=== PATIENT | male | born 1980 | race Caucasian/White ===

== ENCOUNTER 2016-07-02 04:50 | Emergency (ER) | payer OTHER ==
--- NOTE | 2016-07-02 06:16 | DIAGNOSTIC IMAGING REPORT ---
PROCEDURE: CT HEAD WITHOUT CONTRAST INDICATION: HEADACHE TECHNIQUE: Noncontrast axial images with sagittal and coronal reformations. COMPARISON: None. FINDINGS: Sulci and ventricular system are normal. Cavum septum pellucidum (normal variant). No evidence of acute intracranial process. Visualized mastoids and sinuses are clear. No significant interval change. IMPRESSION: 1. Negative non-enhanced head CT. 2. Findings discussed with Dr. Sims at 06:14 a.m.[facility] Standard Time
--- NOTE | 2016-07-02 06:16 | DIAGNOSTIC IMAGING REPORT ---
PROCEDURE: CT HEAD WITHOUT CONTRAST INDICATION: HEADACHE TECHNIQUE: Noncontrast axial images with sagittal and coronal reformations. COMPARISON: None. FINDINGS: Sulci and ventricular system are normal. Cavum septum pellucidum (normal variant). No evidence of acute intracranial process. Visualized mastoids and sinuses are clear. No significant interval change. IMPRESSION: 1. Negative non-enhanced head CT. 2. Findings discussed with Dr. Sims at 06:14 a.m.[facility] Standard Time
--- NOTE | 2016-07-02 08:58 | ED ORDER SUMMARY ---
..... Patient: RICARDO HUDSON OrderSheet [facility] VisitID: [id number] [place] [address] 35y, M Registration Date/Time: 07/02/2016 ORDER SHEET Weight: 154.2 kg (stated) Allergies: Codeine GENERAL ORDERS: CT Head wo Cont Urgent (05:07/02/2016 Sergio RIDDLE) (Ack 5:28 AMcQuoid ER Tech1) (5:52 Whit) Cardiac Panel Stat (05:07/02/2016 Sergio RIDDLE) (Ack 5:28 AMcQuoid ER Tech1) (5:57 SBalde R.N.) UA-Culture if indicated Urgent (05:07/02/2016 Sergio RIDDLE) (Ack 5:28 AMcQuoid ER Tech1) (5:58 SBalde R.N.) Urine Drug Screen Urgent (05:07/02/2016 Sergio RIDDLE) (Ack 5:28 AMcQuoid ER Tech1) (5:58 SBalde R.N.) MEDICATION ORDERS: - (verapamil 120 mg po) (05:31 07/02/2016 Sergio RIDDLE) (Ack 5:37 SBalde R.N.) (5:58 SBalde R.N.) Ativan PO 1 mg (HIGH ALERT MEDICATION, NOW) (05:58 07/02/2016 SBalde R.N. verbal order read back to Sergio RIDDLE) (6:00 SBalde R.N.) GI Cocktail WHITE PO 50 mL (NOW) (07:23 07/02/2016 Sergio RIDDLE) (Ack 7:43 Gertrude R.N.) (7:53 Gertrude R.N.) IV FLUIDS: Ativan IV 0.5 mg (NOW) (05:07/02/2016 Sergio RIDDLE) (Ack 5:37 SBalde R.N.) (Cancelled: Change in patient condition5:58 SBalde R.N.) IV Saline Lock (05:07/02/2016 Sergio RIDDLE) (Cancelled: Change in patient condition5:58 SBalde R.N.) ORDER SHEET NOTES: [Electronically signed by Milagro Mckeon R.N. (09:07/02/2016)] [Electronically signed by Rocky Sims MD (:14 07/04/2016)] [Electronically locked/signed by Milagro Mckeon R.N. (:07/02/2016)]
--- NOTE | 2016-07-02 08:58 | ED NURSING NOTES ---
Clinical Report - Nurses [facility] [address] [place] [address] 07/02/2016 4:50 [id number] Triage time 04:54 Jul 02 2016. Acuity: LEVEL 2. Alert. No acute distress. GENESIS COMA SCORE: Genesis Coma Scale: 15- eyes open spontaneously (4); best verbal response- oriented x 4 (5); best motor response- obeys commands (6). --05:00 Aura Henderson R.N. 04:54 07/02/16. BP: 158/85. HR: 76. RR: 18. O2 saturation: 100%. Temp: 98.4 F. Pain level now 10/10. --05:00 Aura Henderson R.N. Chief Complaint: BLOOD PRESSURE CHECK and HEADACHE. --09:13 Milagro Mckeon R.N. Weight: 154.2 kg stated. Height/Length: 72 inches Per Patient. BMI: 46.1. --04:54 Aura Henderson R.N. Medications Verapamil HCl Oral (not taking, RX ran out, not refilled). --04:57 Aura Henderson R.N. Suboxone Sublingual 16 mg. --04:57 Aura Henderson R.N. Nystatin Mouth/Throat. --04:58 Aura Henderson R.N. Tylenol Oral, as needed. --04:58 Aura Henderson R.N. Medication/allergy information source: the patient. --05:00 Aura Henderson R.N. Allergies Codeine. (chest pain) --04:57 Aura Henderson R.N. History Arrived by private vehicle. Historian: patient. Accompanied by family. ( High Blood Pressure at the clinic yesterday, c/o Headache, 10 all these symptoms started yesterday. Started Suboxone May 25, off Heroin.). This started yesterday. 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 PAST MEDICAL HX: Has not received seasonal influenza immunization. SOCIAL HX: Heavy tobacco smoker (cigarette)- less than 1 pack per day. 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 No alcohol use. NUTRITIONAL RISK ASSESSMENT: The nutritional risk assessment revealed no deficiencies. FUNCTIONAL ASSESSMENT: Functional assessment: no impairments noted. LEARNING NEEDS ASSESSMENT: The learning needs assessment revealed no barriers. SKIN INTEGRITY ASSESSMENT: Skin integrity risk assessment completed. No skin integrity risk identified. --05:00 Aura Henderson R.N. Primary physician (Dr. Hennessy). --05:01 Aura Henderson R.N. PROBLEMS: Tension-Type Headache. Cervical Strain. Lifestyle / Substance Problems. Subarachnoid Hemorrhage. Substance Abuse. Vomiting. Atypical Chest Pain. Dental Pain. Opiate Addiction. Hypertension. Cellulitis. Laceration. Asthma. Back Pain. Sleep Apnea. Tetanus Status. Immunizations. --04:59 Aura Henderson R.N. ADDITIONAL SURGERIES: Dental Surgery. --04:59 Aura Henderson R.N. Interventions ID band on patient. To room. --05:00 Aura Henderson R.N. PHYSICAL ASSESSMENT Ambulatory to room. GENERAL / NEURO / PSYCH: Appears anxious. RESPIRATORY: Respirations not labored. CVS: Capillary refill less than 2 seconds. SKIN: Skin is warm and dry. --07:04 Aura Henderson R.N. NURSING PROGRESS NOTES 05:58 07/02/2016 Verapamil PO 120 mg given. Allergies verified and confirmed 5 rights. --05:58 Aura Henderson R.N. 06:00 07/02/2016 Ativan (LORazepam) PO 1 mg given. Allergies verified, confirmed 5 rights and sedative warning given to the patient. --06:00 Aura Henderson R.N. :patient confirmed. Blood samples drawn by nurse per protocol ; labeled in presence of the patient and sent to lab: rainbow set. Urine collected with return of yellow-colored clear urine; sample sent to lab for urinalysis. Specimen labeled in the presence of the patient. --06:01 Aura Henderson R.N. Patient waiting for lab and CT results. --07:05 Aura Henderson R.N. Care transferred and report given (MANUELA Soto). --07:14 Aura Henderson R.N. 07:23 07/02/16. BP: 146/55. HR: 74. RR: 18. O2 saturation: 98%. Pain level now 12/23. --07:23 Aura Henderson R.N. 07:53 07/02/2016 maalox * PO 30 ml with viscious lidocaine 20 ml --07:53 Milagro Mckeon R.N. 09:05. The patient is calm. Overall patient status is improved- he states feels better. RESPIRATORY: No respiratory distress. SKIN: Skin is warm and dry. --09:13 Milagro Mckeon R.N. DISPOSITION / DISCHARGE Departure time: 904. Condition at departure: improved. No learning barriers present. Discharge instructions provided and reviewed with the patient. Reviewed medication(s). Prescription(s) given to the patient. Patient verbalized understanding. Written instructions provided in Japanese. The patient was discharged home and unaccompanied at time of discharge. He left the Emergency Department ambulatory and via private vehicle. FALL RISK ASSESSMENT: Fall risk assessment completed. No fall risk identified. --09:12 Milagro Mckeon R.N. 09:05 07/02/16. BP: 140/50. HR: 80. RR: 18. O2 saturation: 96% on room air. Pain level now: 06/25. --09:12 Milagro Mckeon R.N. Locked/Released at 07/02/2016 9:14 by Milagro Mckeon R.N.
--- NOTE | 2016-07-02 08:58 | ED CLINICAL REPORT ---
Clinical Report - Physicians/Mid Levels [facility] [address] [place] [address] 07/02/2016 4:50 Patient: RICARDO HUDSON Time Seen: 05:22 Jul 02 2016. Arrived- By private vehicle. Historian- patient. CPT: ER phys charges level 4 (#[id number]). HISTORY OF PRESENT ILLNESS Is still present. Chief Complaint: HEADACHE. This started yesterday. Onset during light activity. It is described as "pain". Described as a global headache. At its maximum, severity described as moderate. When seen in the E.D., severity described as moderate. Modifying factors: worsened by bright light and moving head; relieved by nothing. The patient has had photophobia. No associated nausea, numbness, weakness or vomiting. No recent travel. Similar symptoms previously: As bad. 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 Recent medical care: The patient was seen recently at another facility in a clinic. Seen for other problems. ( Started suboxone). REVIEW OF SYSTEMS No fever, muscle aches, sinus pressure, ear pain or sore throat. No head injury, chest pain, difficulty breathing, cough or abdominal pain. No diarrhea, pain with urination or skin rash. All systems otherwise negative, except as recorded above. 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 Pt says he has been clean for a year. Medications: Tylenol Oral, as needed. Nystatin Mouth/Throat. Suboxone Sublingual 16 mg. Verapamil HCl Oral (not taking, RX ran out, not refilled). Allergies: Codeine. (chest pain). SOCIAL HISTORY Heavy tobacco smoker (cigarette)- 1 pack per day. History of drug use: heroin, methamphetamines. No alcohol use. ADDITIONAL NOTES The nursing notes have been reviewed. PHYSICAL EXAM Vital Signs: 07/02/2016 04:54 BP: 158/85. HR: 76. RR: 18. O2 saturation: 100%. Temp: 98.4 F. Appearance: Alert. Appears to be in pain. Patient in moderate distress. Eyes: Photophobia present. Pupils equal, round and reactive to light. ENT: Ears normal. Nose normal. Pharynx normal. Neck: Normal inspection. Neck supple. No meningeal signs. CVS: Normal heart rate and rhythm. Heart sounds normal. Pulses normal. Respiratory: No respiratory distress. Breath sounds normal. Abdomen: Soft and nontender. Obese. Back: Normal inspection. Skin: Skin warm. Normal skin color. No rash. Extremities: Extremities exhibit normal ROM. No lower extremity edema. Neuro: Oriented X 3. Alert. Mood/affect normal. Speech normal. Cranial nerves normal (as tested). No cerebellar findings. No motor deficit. No sensory deficit. Reflexes normal. LABS, X-RAYS, AND EKG CT Head: No acute disease. Laboratory Tests: UA-Culture if indicated: (FARIHA: 07/02/2016 05:55) ( [facility] 07/02/2016 06:17) Final results Test Result Flag Units (Reference) URINE COLOR YELLOW URINE APPEARANCE CLEAR URINE GLUCOSE 3+ (NEGATIVE) URINE BILIRUBIN NEGATIVE (NEGATIVE) URINE KETONE NEGATIVE (NEGATIVE) URINE SPECIFIC GRAVITY <= 1.005 L (1.010-1.030) URINE PH 6.0 (5.0-8.0) URINE PROTEIN NEGATIVE (NEGATIVE) URINE UROBILINOGEN 0.2 EU/dL (0.2-1.0) URINE NITRITE NEGATIVE (NEGATIVE) URINE BLOOD NEGATIVE (NEGATIVE) URINE LEUK ESTERASE NEGATIVE (NEGATIVE) URINE RBC RARE rbc/hpf (0-1) URINE WBC RARE wbc/hpf (0-1) URINE EPITHELIAL CELLS NONE SEEN EPI/hpf (0-5) URINE BACTERIA NONE SEEN (NONE SEEN) URINE COMMENT CULT NOT INDICATED URINE CULTURES ARE SET-UP BASED ON THE FOLLOWING CRITERIA:POSITIVE NITRITEPOSITIVE LEUKOCYTE ESTERASEGREATER THAN 10 WHITE BLOOD CELLSMODERATE (2+) OR GREATER BACTERIA CBC w Diff: (FARIHA: 07/02/2016 05:55) ( [facility] 07[facility] 06:24) Final results Test Result Flag Units (Reference) WHITE BLOOD COUNT 11.2 K/uL (4.5-11.5) RED BLOOD COUNT 5.47 M/uL (4.50-5.90) HEMOGLOBIN 16.6 gm/dL (13.5-17.5) HEMATOCRIT 50.4 % (41.0-53.0) MEAN CELL VOLUME 92 fL (80-100) MEAN CORPUSCULAR HGB 30 pg (26-34) MEAN CORPUSCULAR HGB CONC 33 g/dL (31-37) RED CELL DISTRIBUTION WIDTH 19.0 H % (11.6-14.8) PLATELET COUNT 214 K/uL (150-400) NEUTROPHIL % 56.1 % (50-75) LYMPH % 29.8 % (25-40) MONO % 11.0 % (3-14) EOSINOPHIL % 1.9 % (0-4) BASOPHIL % 1.2 % (0-2) Urine Drug Screen: (FARIHA: 07/02/2016 05:55) ( [facility] 07/02/2016 06:34) Final results Test Result Flag Units (Reference) AMPHETAMINE/METHAMPHETAMINE NEGATIVE (NEGATIVE) BARBITURATE NEGATIVE (NEGATIVE) BENZODIAZEPINE NEGATIVE (NEGATIVE) CANNABINOID NEGATIVE (NEGATIVE) COCAINE NEGATIVE (NEGATIVE) ECSTASY NEGATIVE (NEGATIVE) METHADONE NEGATIVE (NEGATIVE) OPIATE NEGATIVE (NEGATIVE) The urine drug screen is a qualitative screening test fordrug overdose and abuse. All screen results should beconsidered as presumptive.Drugs screened for are as follows:BenzodiazepinesCocaineAmphetamines/MetamphetaminesTHC (Tetrahydrocannabinol)OpiatesBarbituratesEcstasyMethadonePositive results are unconfirmed. For confirmation, notifythe lab for the specimen to be sent to the reference lab.All confirmations must be performed by a differentmethodology.The ingestion of natural herbal and plant productscontaining Ephedra/Ephedra metabolites can produce in urineone or more substances capable of cross reacting withamphetamine/methamphetamine immunoassays. These testsprovide a preliminary result only. A more specificalternative chemical method must be used to obtain aconfirmed analytical result. CHEM 13 PANEL: (FARIHA: 07/02/2016 05:55) ( MsgRcvd 07/02/2016 06:19) Final results Test Result Flag Units (Reference) GLUCOSE 325 H mg/dL (70-110) BUN 7 mg/dL (7-18) CREATININE 1.0 mg/dL (0.6-1.3) Estimated GFR >60 mL/min Estimated GFR- >60 mL/min Note: Persistent reduction over 3 months in eGFR<60 mL/min/1.73 m2 defines CKD. Patients with eGFR values>=60 mL/min/1.73 m2 may also have CKD if evidence ofpersistent proteinuria. Additional information may be foundat www.kidney.org. SODIUM 135 L mmol/L (136-145) POTASSIUM 4.2 mmol/L (3.5-5.1) CHLORIDE 100 mmol/L (98-107) CARBON DIOXIDE 26 mmol/L (21-32) CALCIUM 8.9 mg/dL (8.5-10.1) TOTAL PROTEIN 7.0 g/dL (6.4-8.2) ALBUMIN 3.2 L g/dL (3.3-5.0) BILIRUBIN, TOTAL 1.5 H mg/dL (0.0-1.0) ALKALINE PHOSPHATASE 162 H U/L (46-116) AST (SGOT) 44 H U/L (15-37) ALT (SGPT) 233 H U/L (12-78) CPK 105 U/L (24-260) MAGNESIUM 2.1 mg/dL (1.8-2.4) TROPONIN I <0.05 ng/mL (0.00-1.5) TROPONIN REFERENCE RANGE:<0.1 NEGATIVE0.1-1.5 INDETERMINANT>1.5 POSITIVE . PROGRESS AND PROCEDURES Course of Care: Heplock Ativan 0.5 mg IV 07:22 07/02/16. Some better but OBRIEN pain still a 7/10. He feels that his sore mouth due to thrush is contributing to the OBRIEN. Pt has no hx of diabetes but BS today is 325. He is not in DKA . He has a PCP. White GI cocktail helped OBRIEN and mouth pain so that patient fell asleep. Patient/family counseled. Disposition: Discharged. Condition: stable. CLINICAL IMPRESSION Uncontrolled essential hypertension. Oral thrush due to recent antibiotics for dental pain Headache due to mouth pain. New diagnosis of diabetes. INSTRUCTIONS Follow a diabetic diet. Warnings: Further evaluation is necessary. GENERAL WARNINGS: Return or contact your physician immediately if your condition worsens or changes unexpectedly, if not improving as expected, or if other problems arise. Prescription Medications: Oncology oral rinse: 1 part maalox, one part benadryl and one part viscous lidocaine: Swish and spit 5 cc po q 4 hours as needed for pain. # 150 cc. Verapamil 120 mg po q day # 10. Understanding of the discharge instructions verbalized by patient. Follow-up with: Clulen Haas MD, Internal Medicine, , [facility], [address] [place] [address], [facility] Follow up in five days. Call for an appointment. (Electronically signed by Rocky Sims MD 07/04/2016 23:14) Addenda for RICARDO HUDSON VisitID: [id number] Date: 07/02/2016 07/02/2016 10:37 [facility] called, insurance does not cover maalox, benadryl, lidocaine mouth rinse. They were instructed to fill the lidocaine, that is covered, and have pt buy the OTC Benadryl and Maalox, and mix them, 1 part each. (Electronically signed by Tati Sutton R.N. - 07/02/2016 10:37)
--- NOTE | 2016-07-02 08:58 | ED NURSING NOTES ---
Clinical Report - Nurses [facility] [address] [place] [address] 07/02/2016 4:50 [id number] Triage time 04:54 Jul 02 2016. Acuity: LEVEL 2. Alert. No acute distress. GENESIS COMA SCORE: Genesis Coma Scale: 15- eyes open spontaneously (4); best verbal response- oriented x 4 (5); best motor response- obeys commands (6). --05:00 Aura Henderson R.N. 04:54 07/02/16. BP: 158/85. HR: 76. RR: 18. O2 saturation: 100%. Temp: 98.4 F. Pain level now 10/10. --05:00 Aura Henderson R.N. Chief Complaint: BLOOD PRESSURE CHECK and HEADACHE. --09:13 Milagro Mckeon R.N. Weight: 154.2 kg stated. Height/Length: 72 inches Per Patient. BMI: 46.1. --04:54 Aura Henderson R.N. Medications Verapamil HCl Oral (not taking, RX ran out, not refilled). --04:57 Aura Henderson R.N. Suboxone Sublingual 16 mg. --04:57 Aura Henderson R.N. Nystatin Mouth/Throat. --04:58 Aura Henderson R.N. Tylenol Oral, as needed. --04:58 Aura Henderson R.N. Medication/allergy information source: the patient. --05:00 Aura Henderson R.N. Allergies Codeine. (chest pain) --04:57 Aura Henderson R.N. History Arrived by private vehicle. Historian: patient. Accompanied by family. ( High Blood Pressure at the clinic yesterday, c/o Headache, 10 all these symptoms started yesterday. Started Suboxone May 25, off Heroin.). This started yesterday. 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 PAST MEDICAL HX: Has not received seasonal influenza immunization. SOCIAL HX: Heavy tobacco smoker (cigarette)- less than 1 pack per day. 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 No alcohol use. NUTRITIONAL RISK ASSESSMENT: The nutritional risk assessment revealed no deficiencies. FUNCTIONAL ASSESSMENT: Functional assessment: no impairments noted. LEARNING NEEDS ASSESSMENT: The learning needs assessment revealed no barriers. SKIN INTEGRITY ASSESSMENT: Skin integrity risk assessment completed. No skin integrity risk identified. --05:00 Aura Henderson R.N. Primary physician (Dr. Hennessy). --05:01 Aura Henderson R.N. PROBLEMS: Tension-Type Headache. Cervical Strain. Lifestyle / Substance Problems. Subarachnoid Hemorrhage. Substance Abuse. Vomiting. Atypical Chest Pain. Dental Pain. Opiate Addiction. Hypertension. Cellulitis. Laceration. Asthma. Back Pain. Sleep Apnea. Tetanus Status. Immunizations. --04:59 Aura Henderson R.N. ADDITIONAL SURGERIES: Dental Surgery. --04:59 Aura Henderson R.N. Interventions ID band on patient. To room. --05:00 Aura Henderson R.N. PHYSICAL ASSESSMENT Ambulatory to room. GENERAL / NEURO / PSYCH: Appears anxious. RESPIRATORY: Respirations not labored. CVS: Capillary refill less than 2 seconds. SKIN: Skin is warm and dry. --07:04 Aura Henderson R.N. NURSING PROGRESS NOTES 05:58 07/02/2016 Verapamil PO 120 mg given. Allergies verified and confirmed 5 rights. --05:58 Arua Henderson R.N. 06:00 07/02/2016 Ativan (LORazepam) PO 1 mg given. Allergies verified, confirmed 5 rights and sedative warning given to the patient. --06:00 Aura Henderson R.N. :patient confirmed. Blood samples drawn by nurse per protocol ; labeled in presence of the patient and sent to lab: rainbow set. Urine collected with return of yellow-colored clear urine; sample sent to lab for urinalysis. Specimen labeled in the presence of the patient. --06:01 Aura Henderson R.N. Patient waiting for lab and CT results. --07:05 Aura Henderson R.N. Care transferred and report given (MANUELA Soto). --07:14 Aura Henderson R.N. 07:23 07/02/16. BP: 146/55. HR: 74. RR: 18. O2 saturation: 98%. Pain level now 12/23. --07:23 Aura Henderson R.N. 07:53 07/02/2016 maalox * PO 30 ml with viscious lidocaine 20 ml --07:53 Milagro Mckeon R.N. 09:05. The patient is calm. Overall patient status is improved- he states feels better. RESPIRATORY: No respiratory distress. SKIN: Skin is warm and dry. --09:13 Milagro Mckeon R.N. DISPOSITION / DISCHARGE Departure time: 904. Condition at departure: improved. No learning barriers present. Discharge instructions provided and reviewed with the patient. Reviewed medication(s). Prescription(s) given to the patient. Patient verbalized understanding. Written instructions provided in Armenian. The patient was discharged home and unaccompanied at time of discharge. He left the Emergency Department ambulatory and via private vehicle. FALL RISK ASSESSMENT: Fall risk assessment completed. No fall risk identified. --09:12 Milagro Mckeon R.N. 09:05 07/02/16. BP: 140/50. HR: 80. RR: 18. O2 saturation: 96% on room air. Pain level now: 06/25. --09:12 Milagro Mckeon R.N. Locked/Released at 07/02/2016 9:14 by Milagro Mckeon R.N.
--- NOTE | 2016-07-02 08:58 | ED CLINICAL REPORT ---
Clinical Report - Physicians/Mid Levels [facility] [address] [place] [address] 07/02/2016 4:50 Patient: RICARDO HUDSON Time Seen: 05:22 Jul 02 2016. Arrived- By private vehicle. Historian- patient. CPT: ER phys charges level 4 (#[id number]). HISTORY OF PRESENT ILLNESS Is still present. Chief Complaint: HEADACHE. This started yesterday. Onset during light activity. It is described as "pain". Described as a global headache. At its maximum, severity described as moderate. When seen in the E.D., severity described as moderate. Modifying factors: worsened by bright light and moving head; relieved by nothing. The patient has had photophobia. No associated nausea, numbness, weakness or vomiting. No recent travel. Similar symptoms previously: As bad. 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 Recent medical care: The patient was seen recently at another facility in a clinic. Seen for other problems. ( Started suboxone). REVIEW OF SYSTEMS No fever, muscle aches, sinus pressure, ear pain or sore throat. No head injury, chest pain, difficulty breathing, cough or abdominal pain. No diarrhea, pain with urination or skin rash. All systems otherwise negative, except as recorded above. 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 Medications: Tylenol Oral, as needed. Nystatin Mouth/Throat. Suboxone Sublingual 16 mg. Verapamil HCl Oral (not taking, RX ran out, not refilled). Allergies: Codeine. (chest pain). SOCIAL HISTORY Heavy tobacco smoker (cigarette)- 1 pack per day. History of drug use: heroin, methamphetamines. No alcohol use. ADDITIONAL NOTES The nursing notes have been reviewed. PHYSICAL EXAM Vital Signs: 07/02/2016 04:54 BP: 158/85. HR: 76. RR: 18. O2 saturation: 100%. Temp: 98.4 F. Appearance: Alert. Appears to be in pain. Patient in moderate distress. Eyes: Photophobia present. Pupils equal, round and reactive to light. ENT: Ears normal. Nose normal. Pharynx normal. Neck: Normal inspection. Neck supple. No meningeal signs. CVS: Normal heart rate and rhythm. Heart sounds normal. Pulses normal. Respiratory: No respiratory distress. Breath sounds normal. Abdomen: Soft and nontender. Obese. Back: Normal inspection. Skin: Skin warm. Normal skin color. No rash. Extremities: Extremities exhibit normal ROM. No lower extremity edema. Neuro: Oriented X 3. Alert. Mood/affect normal. Speech normal. Cranial nerves normal (as tested). No cerebellar findings. No motor deficit. No sensory deficit. Reflexes normal. LABS, X-RAYS, AND EKG CT Head: No acute disease. Laboratory Tests: UA-Culture if indicated: (FARIHA: 07/02/2016 05:55) ( [facility] [place]02[place] 06:17) Final results Test Result Flag Units (Reference) URINE COLOR YELLOW URINE APPEARANCE CLEAR URINE GLUCOSE 3+ (NEGATIVE) URINE BILIRUBIN NEGATIVE (NEGATIVE) URINE KETONE NEGATIVE (NEGATIVE) URINE SPECIFIC GRAVITY <= 1.005 L (1.010-1.030) URINE PH 6.0 (5.0-8.0) URINE PROTEIN NEGATIVE (NEGATIVE) URINE UROBILINOGEN 0.2 EU/dL (0.2-1.0) URINE NITRITE NEGATIVE (NEGATIVE) URINE BLOOD NEGATIVE (NEGATIVE) URINE LEUK ESTERASE NEGATIVE (NEGATIVE) URINE RBC RARE rbc/hpf (0-1) URINE WBC RARE wbc/hpf (0-1) URINE EPITHELIAL CELLS NONE SEEN EPI/hpf (0-5) URINE BACTERIA NONE SEEN (NONE SEEN) URINE COMMENT CULT NOT INDICATED URINE CULTURES ARE SET-UP BASED ON THE FOLLOWING CRITERIA:POSITIVE NITRITEPOSITIVE LEUKOCYTE ESTERASEGREATER THAN 10 WHITE BLOOD CELLSMODERATE (2+) OR GREATER BACTERIA CBC w Diff: (FARIHA: 07/02/2016 05:55) ( [facility] [place] 07/02/2016 06:24) Final results Test Result Flag Units (Reference) WHITE BLOOD COUNT 11.2 K/uL (4.5-11.5) RED BLOOD COUNT 5.47 M/uL (4.50-5.90) HEMOGLOBIN 16.6 gm/dL (13.5-17.5) HEMATOCRIT 50.4 % (41.0-53.0) MEAN CELL VOLUME 92 fL (80-100) MEAN CORPUSCULAR HGB 30 pg (26-34) MEAN CORPUSCULAR HGB CONC 33 g/dL (31-37) RED CELL DISTRIBUTION WIDTH 19.0 H % (11.6-14.8) PLATELET COUNT 214 K/uL (150-400) NEUTROPHIL % 56.1 % (50-75) LYMPH % 29.8 % (25-40) MONO % 11.0 % (3-14) EOSINOPHIL % 1.9 % (0-4) BASOPHIL % 1.2 % (0-2) Urine Drug Screen: (FARIHA: 07/02/2016 05:55) ( MsgRcvd 07/02/2016 06:34) Final results Test Result Flag Units (Reference) AMPHETAMINE/METHAMPHETAMINE NEGATIVE (NEGATIVE) BARBITURATE NEGATIVE (NEGATIVE) BENZODIAZEPINE NEGATIVE (NEGATIVE) CANNABINOID NEGATIVE (NEGATIVE) COCAINE NEGATIVE (NEGATIVE) ECSTASY NEGATIVE (NEGATIVE) METHADONE NEGATIVE (NEGATIVE) OPIATE NEGATIVE (NEGATIVE) The urine drug screen is a qualitative screening test fordrug overdose and abuse. All screen results should beconsidered as presumptive.Drugs screened for are as follows:BenzodiazepinesCocaineAmphetamines/MetamphetaminesTHC (Tetrahydrocannabinol)OpiatesBarbituratesEcstasyMethadonePositive results are unconfirmed. For confirmation, notifythe lab for the specimen to be sent to the reference lab.All confirmations must be performed by a differentmethodology.The ingestion of natural herbal and plant productscontaining Ephedra/Ephedra metabolites can produce in urineone or more substances capable of cross reacting withamphetamine/methamphetamine immunoassays. These testsprovide a preliminary result only. A more specificalternative chemical method must be used to obtain aconfirmed analytical result. CHEM 13 PANEL: (FARIHA: 07/02/2016 05:55) ( MsgRcvd 07/02/2016 06:19) Final results Test Result Flag Units (Reference) GLUCOSE 325 H mg/dL (70-110) BUN 7 mg/dL (7-18) CREATININE 1.0 mg/dL (0.6-1.3) Estimated GFR >60 mL/min Estimated GFR- >60 mL/min Note: Persistent reduction over 3 months in eGFR<60 mL/min/1.73 m2 defines CKD. Patients with eGFR values>=60 mL/min/1.73 m2 may also have CKD if evidence ofpersistent proteinuria. Additional information may be foundat www.kidney.org. SODIUM 135 L mmol/L (136-145) POTASSIUM 4.2 mmol/L (3.5-5.1) CHLORIDE 100 mmol/L (98-107) CARBON DIOXIDE 26 mmol/L (21-32) CALCIUM 8.9 mg/dL (8.5-10.1) TOTAL PROTEIN 7.0 g/dL (6.4-8.2) ALBUMIN 3.2 L g/dL (3.3-5.0) BILIRUBIN, TOTAL 1.5 H mg/dL (0.0-1.0) ALKALINE PHOSPHATASE 162 H U/L (46-116) AST (SGOT) 44 H U/L (15-37) ALT (SGPT) 233 H U/L (12-78) CPK 105 U/L (24-260) MAGNESIUM 2.1 mg/dL (1.8-2.4) TROPONIN I <0.05 ng/mL (0.00-1.5) TROPONIN REFERENCE RANGE:<0.1 NEGATIVE0.1-1.5 INDETERMINANT>1.5 POSITIVE . PROGRESS AND PROCEDURES Course of Care: Heplock Ativan 0.5 mg IV 07:22 07/02/16. Some better but OBRIEN pain still a 7/10. He feels that his sore mouth due to thrush is contributing to the OBRIEN. Pt has no hx of diabetes but BS today is 325. He is not in DKA . He has a PCP. White GI cocktail helped OBRIEN and mouth pain so that patient fell asleep. Patient/family counseled. Disposition: Discharged. Condition: stable. CLINICAL IMPRESSION Uncontrolled essential hypertension. Oral thrush due to recent antibiotics for dental pain Headache due to mouth pain. New diagnosis of diabetes. INSTRUCTIONS Follow a diabetic diet. Warnings: Further evaluation is necessary. GENERAL WARNINGS: Return or contact your physician immediately if your condition worsens or changes unexpectedly, if not improving as expected, or if other problems arise. Prescription Medications: Oncology oral rinse: 1 part maalox, one part benadryl and one part viscous lidocaine: Swish and spit 5 cc po q 4 hours as needed for pain. # 150 cc. Verapamil 120 mg po q day # 10. Understanding of the discharge instructions verbalized by patient. Follow-up with: Cullen Haas MD, Internal Medicine, , [facility], [address] [place] [address], [facility] Follow up in five days. Call for an appointment. (Electronically signed by Rocky Sims MD 07/04/2016 23:14) Addenda for RICARDO HUDSON VisitID: [id number] Date: 07/02/2016 07/02/2016 10:37 [facility], insurance does not cover maalox, benadryl, lidocaine mouth rinse. They were instructed to fill the lidocaine, that is covered, and have pt buy the OTC Benadryl and Maalox, and mix them, 1 part each. (Electronically signed by Tati Sutton R.N. - 07/02/2016 10:37)
--- NOTE | 2016-07-02 08:58 | ED ORDER SUMMARY ---
..... Patient: RICARDO HUDSON OrderSheet [facility] VisitID: [id number] [place] [address] 35y, M Registration Date/Time: 07/02/2016 ORDER SHEET Weight: 154.2 kg (stated) Allergies: Codeine GENERAL ORDERS: CT Head wo Cont Urgent (05:07/02/2016 Sergio RIDDLE) (Ack 5:28 AMcQuoid ER Tech1) (5:52 Whit) Cardiac Panel Stat (05:07/02/2016 Sergio RIDDLE) (Ack 5:28 AMcQuoid ER Tech1) (5:57 SBalde R.N.) UA-Culture if indicated Urgent (05:07/02/2016 Sergio RIDDLE) (Ack 5:28 AMcQuoid ER Tech1) (5:58 SBalde R.N.) Urine Drug Screen Urgent (05:07/02/2016 Sergio RIDDLE) (Ack 5:28 AMcQuoid ER Tech1) (5:58 SBalde R.N.) MEDICATION ORDERS: - (verapamil 120 mg po) (05:31 07/02/2016 Sergio RIDDLE) (Ack 5:37 SBalde R.N.) (5:58 SBalde R.N.) Ativan PO 1 mg (HIGH ALERT MEDICATION, NOW) (05:58 07/02/2016 SBalde R.N. verbal order read back to Sergio RIDDLE) (6:00 SBalde R.N.) GI Cocktail WHITE PO 50 mL (NOW) (07:23 07/02/2016 Sergio RIDDLE) (Ack 7:43 Gertrude R.N.) (7:53 Gertrude R.N.) IV FLUIDS: Ativan IV 0.5 mg (NOW) (05:07/02/2016 Sergio RIDDLE) (Ack 5:37 SBalde R.N.) (Cancelled: Change in patient condition5:58 SBalde R.N.) IV Saline Lock (05:07/02/2016 Sergio RIDDLE) (Cancelled: Change in patient condition5:58 SBalde R.N.) ORDER SHEET NOTES: [Electronically signed by Milagro Mckeon R.N. (09:07/02/2016)] [Electronically signed by Rocky Sims MD (:14 07/04/2016)] [Electronically locked/signed by Milagro Mckeon R.N. (:07/02/2016)]
--- NOTE | 2016-07-04 23:14 | ED DISCHARGE INSTRUCTIONS ---
Patient: RICARDO HUDSON General Instructions Located Within [facility] VisitID: [id number] [place] [address] 35y, M Registration Date/Time: 07/02/2016 Uncontrolled essential hypertension. Oral thrush due to recent antibiotics for dental pain Headache due to mouth pain. New diagnosis of diabetes. INSTRUCTIONS Follow a diabetic diet. Warnings: Further evaluation is necessary. GENERAL WARNINGS: Return or contact your physician immediately if your condition worsens or changes unexpectedly, if not improving as expected, or if other problems arise. Prescription Medications: Oncology oral rinse: 1 part maalox, one part benadryl and one part viscous lidocaine: Swish and spit 5 cc po q 4 hours as needed for pain. # 150 cc. Verapamil 120 mg po q day # 10. Understanding of the discharge instructions verbalized by patient. Follow-up with: Cullen Haas MD, Internal Medicine, , [facility], [address] [place] [address] Follow up in five days. Call for an appointment. ADDITIONAL INFORMATION High Blood Pressure --Established High Blood Pressure (Hypertension) is a chronic disease. The cause is unknown in most cases. It can usually be controlled with lifestyle changes and/or medicines. Symptoms of high blood pressure may include headache, dizziness, visual changes, chest pain and shortness of breath. Sometimes it causes no symptoms at all. However, even if there are no symptoms, untreated high blood pressure increases the risk of heart attack, also known as acute myocardial infarction, or AMI, and stroke. It is a serious health risk and should not be ignored. A normal blood pressure is 120/80 or less. The first (top) number is the "systolic" pressure. The second (bottom) number is the "diastolic" pressure. Hypertension exists when either the top number is 140 or higher, OR the bottom number is 90 or higher on repeated measurements. Home Care: All patients with high blood pressure should do the following to lower their pressure. If you are on medicines, then these methods may reduce or eliminate your need for medicines in the future. Begin a weight loss program if you are overweight. Reduce your salt intake. Avoid high salt foods (olives, pickles, smoked meats, salted potato chips, etc.). Do not add salt to your food at the table. Use only small amounts of salt when cooking. Begin an exercise program. Discuss with your doctor what type of exercise program would be best for you. It doesn't have to be difficult. Even brisk walking for 20 minutes three times a week is a good form of exercise. Avoid medicines which contain heart stimulants. This includes many cold and sinus decongestant pills and sprays as well as diet pills. Check the warnings about hypertension on the label. Stimulants such as amphetamine or cocaine could be lethal for someone with hypertension. Never take these. Limit your caffeine intake or switch to caffeine-free products. Stop smoking. If you are a long-time smoker, this can be hard. Enroll in a stop-smoking program to improve your chance of success. Learning how to handle stress better is an important part of any program to lower blood pressure. Learn about relaxation methods such as meditation, yoga or biofeedback. If medicines were prescribed, take them exactly as directed. Missing doses may cause your blood pressure get out of control. Consider buying an automatic blood pressure machine (available at most pharmacies). Use this to monitor your blood pressure at home and report the results to your doctor. Follow Up: Regular visits to your own physician for blood pressure checks and medicine adjustment is an important part of your care. Make a follow-up appointment as directed by our staff. Get Prompt Medical Attention if any of the following occur: Chest pain or shortness of breath Severe headache Throbbing or rushing sound in the ears Nosebleed Sudden severe abdominal pain Extreme drowsiness, confusion or fainting Dizziness or vertigo (dizziness with spinning sensation) Weakness of an arm or leg or one side of the face Difficulty with speech or vision Diet: Diabetes Food is an important tool that you can use to control diabetes and stay healthy. Eating well-balanced meals in the correct amounts will help you control your blood glucose levels and prevent low blood sugar reactions. It will also help you reduce the health risks of diabetes. A registered dietitian (JESENIA) will explain the diabetes diet and help you plan meals and snacks that are healthy to eat. If you have any questions, do not hesitate to call the dietitian for advice. Guidelines For Success: Consult with your doctor before starting a diabetes diet or weight loss program. If you have not yet consulted a dietitian, ask your doctor for a referral. Select foods from the six food groups. Your dietitian will advise you on food choices within each group, serving sizes and how many servings you can have at each meal. Grains, beans and starchy vegetables Vegetables Fruit Milk or yogurt Meats Fats, sweets and alcohol (only a small amount from this group) Monitor your blood sugar levels as requested by your doctor. Take any medicine as prescribed by your doctor. Learn to read nutrition labels and select appropriate portion sizes. Eat only the amount of food in your meal plan. Eat about the same amount of food at regular times each day. Do not skip meals. Eat meals 4 to 5 hours apart, with snacks in between. Limit alcohol. It raises blood sugar levels. Drink water or calorie-free diet drinks that use safe sweeteners. Eat less fat to help lower your risk of heart disease. Use non-fat or low-fat dairy products and lean meats. Avoid fried foods. Use cooking oils that are unsaturated. Talk to your client service supervisor about safe sugar substitutes. Avoid added salt. It can contribute to high blood pressure, which can cause heart disease. People with diabetes already have a risk of high blood pressure and heart disease. Maintain a healthy weight. If you need to lose weight, cut down on your portion sizes. But do not skip meals. Exercise is an important part of any weight management program. Talk to your doctor about an exercise program that is right for you. For more information about the best diet plan for you, talk with a registered dietitian (RD). To obtain a referral to an RD in your area, contact: Academy of [employer] and Dietetics www.eatright.org [employer] [place] [employer] [phone] www.diabetes.org You have been given the following additional information: Hypertension, Established Diabetic Diet (Electronically signed by Rocky Sims MD 07/04/2016 23:14)
--- NOTE | 2016-07-04 23:14 | ED MAR SUMMARY ---
..... Medication Administration Record [facility] [address] [place] [address] Patient: RICARDO HUDSON Visit ID: [id number] 35y, M Weight: 154.2 kg Height/Length: 72 in BMI: 46.1 ALLERGIES: Codeine Given 05:58 07/02/2016 Aura Henderson R.N. Medication Administered: VERAPAMIL [PO], Dose: 120 mg PO. Medication Ordered: - (verapamil 120 mg po). Given 06:00 07/02/2016 Aura Henderson R.N. Medication Administered: ATIVAN [PO] (LORAZEPAM), Dose: 1 mg PO. Medication Ordered: Ativan PO 1 mg (HIGH ALERT MEDICATION, NOW). Given 07:53 07/02/2016 Milagro Mckeon R.N. Medication Administered: maalox *, Dose: 30 ml * PO. Medication Ordered: GI Cocktail WHITE PO 50 mL (NOW).
--- NOTE | 2016-07-04 23:14 | ED MED RECONCILIATION SUMMARY ---
Patient: RICARDO HUDSON Medication Reconciliation Report [facility] VisitID: [id number] [address] [place] [address] 35y, M Registration Date/Time: 07/02/2016 Weight: 154.2 kg Height/Length: 72 in. BMI: 46.1 ALLERGIES: Codeine The patient's Home Medications are listed below: THE FOLLOWING MEDICATIONS NEED TO BE RECONCILED: Nystatin Mouth/Throat Suboxone Sublingual 16 mg Tylenol Oral Verapamil HCl Oral, not taking, RX ran out, not refilled The source(s) of the original Home Medication information: patient The following Medications were given to the patient in the Emergency Department: Verapamil [PO] PO 120 mg, administered: 07/02/2016 5:58:00 AM Ativan [PO] PO 1 mg, administered: 07/02/2016 6:00:00 AM maalox PO 30 ml, administered: 07/02/2016 7:53:00 AM The following Medications were prescribed to the patient: Oncology oral rinse: 1 part maalox, one part benadryl and one part viscous lidocaine: Swish and spit 5 cc po q 4 hours as needed for pain. # 150 cc. Verapamil 120 mg po q day # 10. -- Rocky Sims MD
--- NOTE | 2016-07-04 23:14 | ED MAR SUMMARY ---
..... Medication Administration Record [facility] [address] [place] [address] Patient: RICARDO HUDSON Visit ID: [id number] 35y, M Weight: 154.2 kg Height/Length: 72 in BMI: 46.1 ALLERGIES: Codeine Given 05:58 07/02/2016 Aura Henderson R.N. Medication Administered: VERAPAMIL [PO], Dose: 120 mg PO. Medication Ordered: - (verapamil 120 mg po). Given 06:00 07/02/2016 Aura Henderson R.N. Medication Administered: ATIVAN [PO] (LORAZEPAM), Dose: 1 mg PO. Medication Ordered: Ativan PO 1 mg (HIGH ALERT MEDICATION, NOW). Given 07:53 07/02/2016 Milagro Mckeon R.N. Medication Administered: maalox *, Dose: 30 ml * PO. Medication Ordered: GI Cocktail WHITE PO 50 mL (NOW).
--- NOTE | 2016-07-04 23:14 | ED DISCHARGE INSTRUCTIONS ---
Patient: RICARDO HUDSON General Instructions [facility] VisitID: [id number] [place] [address] 35y, M Registration Date/Time: 07/02/2016 Uncontrolled essential hypertension. Oral thrush due to recent antibiotics for dental pain Headache due to mouth pain. New diagnosis of diabetes. INSTRUCTIONS Follow a diabetic diet. Warnings: Further evaluation is necessary. GENERAL WARNINGS: Return or contact your physician immediately if your condition worsens or changes unexpectedly, if not improving as expected, or if other problems arise. Prescription Medications: Oncology oral rinse: 1 part maalox, one part benadryl and one part viscous lidocaine: Swish and spit 5 cc po q 4 hours as needed for pain. # 150 cc. Verapamil 120 mg po q day # 10. Understanding of the discharge instructions verbalized by patient. Follow-up with: Cullen Haas MD, Internal Medicine, , [facility], [address] [place] [address] Follow up in five days. Call for an appointment. ADDITIONAL INFORMATION High Blood Pressure --Established High Blood Pressure (Hypertension) is a chronic disease. The cause is unknown in most cases. It can usually be controlled with lifestyle changes and/or medicines. Symptoms of high blood pressure may include headache, dizziness, visual changes, chest pain and shortness of breath. Sometimes it causes no symptoms at all. However, even if there are no symptoms, untreated high blood pressure increases the risk of heart attack, also known as acute myocardial infarction, or AMI, and stroke. It is a serious health risk and should not be ignored. A normal blood pressure is 120/80 or less. The first (top) number is the "systolic" pressure. The second (bottom) number is the "diastolic" pressure. Hypertension exists when either the top number is 140 or higher, OR the bottom number is 90 or higher on repeated measurements. Home Care: All patients with high blood pressure should do the following to lower their pressure. If you are on medicines, then these methods may reduce or eliminate your need for medicines in the future. Begin a weight loss program if you are overweight. Reduce your salt intake. Avoid high salt foods (olives, pickles, smoked meats, salted potato chips, etc.). Do not add salt to your food at the table. Use only small amounts of salt when cooking. Begin an exercise program. Discuss with your doctor what type of exercise program would be best for you. It doesn't have to be difficult. Even brisk walking for 20 minutes three times a week is a good form of exercise. Avoid medicines which contain heart stimulants. This includes many cold and sinus decongestant pills and sprays as well as diet pills. Check the warnings about hypertension on the label. Stimulants such as amphetamine or cocaine could be lethal for someone with hypertension. Never take these. Limit your caffeine intake or switch to caffeine-free products. Stop smoking. If you are a long-time smoker, this can be hard. Enroll in a stop-smoking program to improve your chance of success. Learning how to handle stress better is an important part of any program to lower blood pressure. Learn about relaxation methods such as meditation, yoga or biofeedback. If medicines were prescribed, take them exactly as directed. Missing doses may cause your blood pressure get out of control. Consider buying an automatic blood pressure machine (available at most pharmacies). Use this to monitor your blood pressure at home and report the results to your doctor. Follow Up: Regular visits to your own physician for blood pressure checks and medicine adjustment is an important part of your care. Make a follow-up appointment as directed by our staff. Get Prompt Medical Attention if any of the following occur: Chest pain or shortness of breath Severe headache Throbbing or rushing sound in the ears Nosebleed Sudden severe abdominal pain Extreme drowsiness, confusion or fainting Dizziness or vertigo (dizziness with spinning sensation) Weakness of an arm or leg or one side of the face Difficulty with speech or vision Diet: Diabetes Food is an important tool that you can use to control diabetes and stay healthy. Eating well-balanced meals in the correct amounts will help you control your blood glucose levels and prevent low blood sugar reactions. It will also help you reduce the health risks of diabetes. A registered dietitian (JESENIA) will explain the diabetes diet and help you plan meals and snacks that are healthy to eat. If you have any questions, do not hesitate to call the dietitian for advice. Guidelines For Success: Consult with your doctor before starting a diabetes diet or weight loss program. If you have not yet consulted a dietitian, ask your doctor for a referral. Select foods from the six food groups. Your dietitian will advise you on food choices within each group, serving sizes and how many servings you can have at each meal. Grains, beans and starchy vegetables Vegetables Fruit Milk or yogurt Meats Fats, sweets and alcohol (only a small amount from this group) Monitor your blood sugar levels as requested by your doctor. Take any medicine as prescribed by your doctor. Learn to read nutrition labels and select appropriate portion sizes. Eat only the amount of food in your meal plan. Eat about the same amount of food at regular times each day. Do not skip meals. Eat meals 4 to 5 hours apart, with snacks in between. Limit alcohol. It raises blood sugar levels. Drink water or calorie-free diet drinks that use safe sweeteners. Eat less fat to help lower your risk of heart disease. Use non-fat or low-fat dairy products and lean meats. Avoid fried foods. Use cooking oils that are unsaturated. Talk to your chipper operator about safe sugar substitutes. Avoid added salt. It can contribute to high blood pressure, which can cause heart disease. People with diabetes already have a risk of high blood pressure and heart disease. Maintain a healthy weight. If you need to lose weight, cut down on your portion sizes. But do not skip meals. Exercise is an important part of any weight management program. Talk to your doctor about an exercise program that is right for you. For more information about the best diet plan for you, talk with a registered dietitian (RD). To obtain a referral to an RD in your area, contact: [employer] www.eatright.org [employer] [phone] www.diabetes.org You have been given the following additional information: Hypertension, Established Diabetic Diet (Electronically signed by Rocky Sims MD 07/04/2016 23:14)
--- NOTE | 2016-07-04 23:14 | ED MED RECONCILIATION SUMMARY ---
Patient: RICARDO HUDSON Medication Reconciliation Report [facility] VisitID: [id number] [place] [address] 35y, M Registration Date/Time: 07/02/2016 Weight: 154.2 kg Height/Length: 72 in. BMI: 46.1 ALLERGIES: Codeine The patient's Home Medications are listed below: THE FOLLOWING MEDICATIONS NEED TO BE RECONCILED: Nystatin Mouth/Throat Suboxone Sublingual 16 mg Tylenol Oral Verapamil HCl Oral, not taking, RX ran out, not refilled The source(s) of the original Home Medication information: patient The following Medications were given to the patient in the Emergency Department: Verapamil [PO] PO 120 mg, administered: 07/02/2016 5:58:00 AM Ativan [PO] PO 1 mg, administered: 07/02/2016 6:00:00 AM maalox PO 30 ml, administered: 07/02/2016 7:53:00 AM The following Medications were prescribed to the patient: Oncology oral rinse: 1 part maalox, one part benadryl and one part viscous lidocaine: Swish and spit 5 cc po q 4 hours as needed for pain. # 150 cc. Verapamil 120 mg po q day # 10. -- Rocky Sims MD
== END 2016-07-02 09:05 | disposition home or self-care (01) ==
LOC: ED SRH 04:50
DX: I10 Essential (primary) hypertension (principal); B37.0 Candidal stomatitis; R51 Headache; E11.9 Type 2 diabetes mellitus without complications; F17.210 Nicotine dependence, cigarettes, uncomplicated; Z88.5 Allergy status to narcotic agent
CPT/HCPCS: 90004; 90100; 90616; 92610; 92720; 92760; 92761; 92762; 92763; 92764; 92765; 92766; 92767; 95059